=== PATIENT | male | born 1970 | race Two or more races ===

== ENCOUNTER 2023-10-20 20:37 | Inpatient (IN) | payer OTHER ==
[2023-10-20 21:47] VITALS: BMI 21.6
[2023-10-20] MEDS ORDERED: BENZOCAINE/MENTHOL (CHLORASEPTIC ) LOZENGE MM PRN (23:36)
[2023-10-20] MEDS ORDERED: BISMUTH SUBSALICYLATE 524 MG/30 ML PO PRN (23:36)
[2023-10-20] MEDS ORDERED: MAGNESIUM HYDROX 2400MG/30ML ORAL SUSPENSION 30 ML CUP PO PRN (23:36)
[2023-10-20] MEDS ORDERED: POLYETHYLENE GLYCOL (HEALTHYLAX) 3350 17 GM PACKET PO PRN (23:36)
[2023-10-20] MEDS ORDERED: NALOXONE HCL 0.4 MG/ML VIAL IM PRN (23:36)
[2023-10-20] MEDS ORDERED: IBUPROFEN 600 MG TABLET (FP) PO PRN (23:36)
[2023-10-20] MEDS ORDERED: ONDANSETRON *ODT* 4 MG TABLET SL PRN (23:36)
[2023-10-20] MEDS ORDERED: METHOCARBAMOL 500 MG TABLET PO PRN (23:36)
[2023-10-20] MEDS ORDERED: BENZONATATE 200 MG CAPSULE PO PRN (23:36)
[2023-10-20] MEDS ORDERED: NALOXONE HCL (KLOXXADO) 8 MG SPRAY NS PRN (23:36)
[2023-10-20] MEDS ORDERED: IBUPROFEN 400 MG TABLET (FP) PO PRN (23:36)
[2023-10-20] MEDS ORDERED: MAG HYDROX/AL HYDROX/SIMETH 30 ML UNIT-DOSE CUP PO PRN (23:36)
[2023-10-20] MEDS ORDERED: guaiFENesin 600 MG TABLET.ER (FP) PO PRN (23:36)
[2023-10-20] MEDS ORDERED: LOPERAMIDE HCL 2 MG CAPSULE PO PRN (23:36)
[2023-10-20] MEDS ORDERED: DICYCLOMINE HCL 10 MG CAPSULE PO PRN (23:36)
[2023-10-20] MEDS ORDERED: NICOTINE POLACRILEX 4 MG GUM BUC PRN (23:36)
[2023-10-20] MEDS ORDERED: LORazepam 1 MG TABLET PO PRN (23:36)
[2023-10-20] MEDS ORDERED: ACETAMINOPHEN 325 MG TABLET (FP) PO PRN (23:36)
[2023-10-21] MEDS ORDERED: LORazepam 2 MG TABLET ONE (00:28)
[2023-10-21] MEDS ORDERED: hydrOXYzine PAMOATE 25 MG CAPSULE (FP) PO ONE (00:29)
[2023-10-21] MEDS: LORazepam 2 MG TABLET PO SCH ×5 (00:32→22:35)
[2023-10-21] MEDS ORDERED: ACETAMINOPHEN 325 MG TABLET (FP) ONE (03:32)
[2023-10-21] MEDS: NICOTINE 21 MG/24 HOURS TOPICAL PATCH TD SCH (10:17)
[2023-10-21] MEDS: PRENATAL VITAMINS W/ FOLIC ACID TABLET (FP) PO SCH (10:18)
[2023-10-21 12:20] LABS: HEMATOCRIT 42.6 % (35.4-49); HEMOGLOBIN 14.3 GM/dL (11.7-16.9); MCH 33.8 pg (25.7-33.7); MCHC 33.7 g/dl (32.0-35.9); MEAN CELL VOLUME 100.4 fl (80-96); MEAN PLT VOLUME 8.7 fl (7.5-11.1); PLATELET COUNT 278 10^3/uL (134-434); RBC 4.24 M/mm3 (4.00-5.60); RDW 12.6 % (11.9-15.9); WHITE BLOOD COUNT 5.8 K/mm3 (4.0-10.0)
[2023-10-21 12:53] LABS: CHLORIDE 106 mmol/L (98-107); POTASSIUM 3.7 mmol/L (3.5-5.1); SODIUM 139 mmol/L (136-145)
[2023-10-21 12:59] LABS: CALCIUM 7.9 mg/dL (8.5-10.1)
[2023-10-21 13:00] LABS: ALBUMIN 3.2 g/dl (3.4-5.0); ANION GAP 7 mmol/L (4-13); BLOOD UREA NITROGEN 10.6 mg/dL (7-18); CO2 26 mmol/L (21-32); GLUCOSE,RANDOM 82 mg/dL (74-106)
[2023-10-21 13:03] LABS: CREATININE 0.9 mg/dL (0.55-1.3); SGOT/AST 17 U/L (15-37); SGPT/ALT 21 U/L (13-61)
[2023-10-21 13:05] LABS: BILIRUBIN,TOTAL 1.2 mg/dL (0.2-1); TOT PROT 6.3 g/dl (6.4-8.2)
[2023-10-21 13:06] LABS: ALK PHOS 81 U/L (45-117)
[2023-10-21] MEDS ORDERED: THIAMINE HCL 100 MG TABLET (FP) PO SCH (22:00)
[2023-10-21] MEDS ORDERED: MELATONIN 5 MG TABLETS PO SCH (22:00)
[2023-10-22] MEDS: LORazepam 1 MG TABLET PO SCH ×3 (05:23→17:25)
[2023-10-22] MEDS: PRENATAL VITAMINS W/ FOLIC ACID TABLET (FP) PO SCH (10:08)
[2023-10-22] MEDS: NICOTINE 21 MG/24 HOURS TOPICAL PATCH TD SCH (10:09)
[2023-10-22] MEDS ORDERED: AMMONIUM LACTATE 12% LOTION 225 GM BOTTLE TP SCH (15:00)
[2023-10-22 17:30] VITALS: BP 143/88; PULSE 118; RESP 17; TEMP 98.1
[2023-10-23] MEDS ORDERED: LORazepam 0.5 MG TABLET PO PRN
[2023-10-23] MEDS ORDERED: LORazepam 0.5 MG TABLET PO SCH (05:00)
[2023-10-24] MEDS ORDERED: LORazepam 0.5 MG TABLET PO ONE (05:00)
== END 2023-10-22 19:35 | disposition left against medical advice (07) | DRG 894 ==
LOC: YASAS 20:37 → Y6N 10-21 03:26
PROVIDERS: ADMIT Allergy & Immunology; ATTEND Surgery
PROC: HZ2ZZZZ Detoxification Services for Substance Abuse Treatment (ICD-10-PCS; principal; 2023-10-21)
DX: F10.230 Alcohol dependence with withdrawal, uncomplicated (principal); F14.20 Cocaine dependence, uncomplicated; F19.282 Other psychoactive substance dependence with psychoactive substance-induced sleep disorder; Z59.00 Homelessness unspecified; F17.210 Nicotine dependence, cigarettes, uncomplicated; F19.24 Other psychoactive substance dependence with psychoactive substance-induced mood disorder; Z56.0 Unemployment, unspecified
CPT/HCPCS: 36415; 80053; 80307; 85027; 86780; 87635; 87811; 93005; 93010

== ENCOUNTER 2024-01-14 09:28 | Inpatient (IN) | payer OTHER ==
[2024-01-14 09:50] VITALS: BMI 21.6
[2024-01-14] MEDS ORDERED: BENZONATATE 200 MG CAPSULE PO PRN (10:18)
[2024-01-14] MEDS ORDERED: MAGNESIUM HYDROX 2400MG/30ML ORAL SUSPENSION 30 ML CUP PO PRN (10:18)
[2024-01-14] MEDS ORDERED: hydrOXYzine PAMOATE 25 MG CAPSULE (FP) PO PRN (10:18)
[2024-01-14] MEDS ORDERED: DICYCLOMINE HCL 10 MG CAPSULE PO PRN (10:18)
[2024-01-14] MEDS ORDERED: MAG HYDROX/AL HYDROX/SIMETH 30 ML UNIT-DOSE CUP PO PRN (10:18)
[2024-01-14] MEDS ORDERED: POLYETHYLENE GLYCOL (HEALTHYLAX) 3350 17 GM PACKET PO PRN (10:18)
[2024-01-14] MEDS ORDERED: IBUPROFEN 400 MG TABLET (FP) PO PRN (10:18)
[2024-01-14] MEDS ORDERED: IBUPROFEN 600 MG TABLET (FP) PO PRN (10:18)
[2024-01-14] MEDS ORDERED: METHOCARBAMOL 500 MG TABLET PO PRN (10:18)
[2024-01-14] MEDS ORDERED: NALOXONE HCL (KLOXXADO) 8 MG SPRAY NS PRN (10:18)
[2024-01-14] MEDS ORDERED: LOPERAMIDE HCL 2 MG CAPSULE PO PRN (10:18)
[2024-01-14] MEDS ORDERED: BENZOCAINE/MENTHOL (CHLORASEPTIC ) LOZENGE MM PRN (10:18)
[2024-01-14] MEDS ORDERED: ACETAMINOPHEN 325 MG TABLET (FP) PO PRN (10:18)
[2024-01-14] MEDS ORDERED: guaiFENesin 600 MG TABLET.ER (FP) PO PRN (10:18)
[2024-01-14] MEDS ORDERED: NALOXONE HCL 0.4 MG/ML VIAL IM PRN (10:18)
[2024-01-14] MEDS ORDERED: ONDANSETRON *ODT* 4 MG TABLET SL PRN (10:18)
[2024-01-14] MEDS ORDERED: BISMUTH SUBSALICYLATE 524 MG/30 ML PO PRN (10:18)
[2024-01-14] MEDS ORDERED: NICOTINE POLACRILEX 2 MG GUM BUC PRN (10:18)
[2024-01-14] MEDS: chlordiazePOXIDE HCL 25 MG CAPSULE PO SCH (11:16)
[2024-01-14] MEDS ORDERED: chlordiazePOXIDE HCL 25 MG CAPSULE ONE (11:22)
[2024-01-14] MEDS: MELATONIN 5 MG TABLETS PO SCH (22:13)
[2024-01-14] MEDS: THIAMINE HCL 100 MG TABLET (FP) PO SCH (22:13)
[2024-01-15] MEDS: NICOTINE 21 MG/24 HOURS TOPICAL PATCH TD SCH (10:05)
[2024-01-15] MEDS: PRENATAL VITAMINS W/ FOLIC ACID TABLET (FP) PO SCH (10:05)
[2024-01-15 13:15] LABS: HEMATOCRIT 39.8 % (35.4-49); HEMOGLOBIN 13.4 GM/dL (11.7-16.9); MCH 33.9 pg (25.7-33.7); MCHC 33.8 g/dl (32.0-35.9); MEAN CELL VOLUME 100.3 fl (80-96); MEAN PLT VOLUME 8.7 fl (7.5-11.1); PLATELET COUNT 274 10^3/uL (134-434); RBC 3.97 M/mm3 (4.00-5.60); RDW 13.2 % (11.9-15.9); WHITE BLOOD COUNT 5.4 K/mm3 (4.0-10.0)
[2024-01-15 13:28] LABS: POTASSIUM 4.2 mmol/L (3.5-5.1)
[2024-01-15 13:34] LABS: CALCIUM 8.4 mg/dL (8.5-10.1)
[2024-01-15 13:35] LABS: ALBUMIN 3.2 g/dl (3.4-5.0); BLOOD UREA NITROGEN 11.1 mg/dL (7-18)
[2024-01-15 13:36] LABS: CREATININE 0.8 mg/dL (0.55-1.3)
[2024-01-15 13:38] LABS: BILIRUBIN,TOTAL 0.9 mg/dL (0.2-1); TOT PROT 6.3 g/dl (6.4-8.2)
[2024-01-15 14:03] VITALS: TEMP 97.6
[2024-01-15] MEDS: chlordiazePOXIDE HCL 25 MG CAPSULE PO PRN (15:21)
[2024-01-15 17:17] VITALS: BP 138/90; PULSE 113; RESP 18
[2024-01-16] MEDS ORDERED: chlordiazePOXIDE HCL 25 MG CAPSULE PO SCH (05:00)
[2024-01-17] MEDS ORDERED: chlordiazePOXIDE HCL 10 MG CAPSULE PO PRN
[2024-01-17] MEDS ORDERED: chlordiazePOXIDE HCL 10 MG CAPSULE PO SCH (05:00)
[2024-01-18] MEDS ORDERED: chlordiazePOXIDE HCL 10 MG CAPSULE PO SCH (05:00)
[2024-01-19] MEDS ORDERED: chlordiazePOXIDE HCL 10 MG CAPSULE PO ONE (05:00)
== END 2024-01-15 17:31 | disposition home or self-care (01) | DRG 897 ==
LOC: YASAS 09:28 → Y3N 10:44
PROVIDERS: ADMIT Allergy & Immunology; ATTEND Surgery
PROC: HZ2ZZZZ Detoxification Services for Substance Abuse Treatment (ICD-10-PCS; principal; 2024-01-14)
DX: F10.230 Alcohol dependence with withdrawal, uncomplicated (principal); F19.282 Other psychoactive substance dependence with psychoactive substance-induced sleep disorder; Z59.00 Homelessness unspecified; F17.210 Nicotine dependence, cigarettes, uncomplicated; F19.24 Other psychoactive substance dependence with psychoactive substance-induced mood disorder; Z86.69 Personal history of other diseases of the nervous system and sense organs; Z56.0 Unemployment, unspecified
CPT/HCPCS: 36415; 80053; 80305; 80307; 85027; 86780; 87635; 93005; 93010

== ENCOUNTER 2024-12-18 21:41 | Inpatient (IN) | payer OTHER ==
[2024-12-18 21:58] VITALS: BMI 20.8
[2024-12-18] MEDS ORDERED: LOPERAMIDE HCL 2 MG CAPSULE PO PRN (22:20)
[2024-12-18] MEDS ORDERED: MAGNESIUM HYDROX 2400MG/30ML ORAL SUSPENSION 30 ML CUP PO PRN (22:20)
[2024-12-18] MEDS ORDERED: IBUPROFEN 400 MG TABLET (FP) PO PRN (22:20)
[2024-12-18] MEDS ORDERED: NICOTINE POLACRILEX 4 MG GUM BUC PRN (22:20)
[2024-12-18] MEDS ORDERED: guaiFENesin 600 MG TABLET.ER (FP) PO PRN (22:20)
[2024-12-18] MEDS ORDERED: chlordiazePOXIDE HCL 25 MG CAPSULE PO PRN (22:20)
[2024-12-18] MEDS ORDERED: POLYETHYLENE GLYCOL (HEALTHYLAX) 3350 17 GM PACKET PO PRN (22:20)
[2024-12-18] MEDS ORDERED: DICYCLOMINE HCL 10 MG CAPSULE PO PRN (22:20)
[2024-12-18] MEDS ORDERED: ACETAMINOPHEN 325 MG TABLET (FP) PO PRN (22:20)
[2024-12-18] MEDS ORDERED: NALOXONE (NARCAN) HCL 4 MG/0.1 ML SPRAY NS PRN (22:20)
[2024-12-18] MEDS ORDERED: MAG HYDROX/AL HYDROX/SIMETH 30 ML UNIT-DOSE CUP PO PRN (22:20)
[2024-12-18] MEDS ORDERED: IBUPROFEN 600 MG TABLET (FP) PO PRN (22:20)
[2024-12-18] MEDS ORDERED: BENZONATATE 200 MG CAPSULE PO PRN (22:20)
[2024-12-18] MEDS ORDERED: ONDANSETRON *ODT* 4 MG TABLET SL PRN (22:20)
[2024-12-18] MEDS ORDERED: BISMUTH SUBSALICYLATE 524 MG/30 ML PO PRN (22:20)
[2024-12-18] MEDS ORDERED: BENZOCAINE/MENTHOL (CHLORASEPTIC ) LOZENGE MM PRN (22:20)
[2024-12-19] MEDS ORDERED: chlordiazePOXIDE HCL 25 MG CAPSULE ONE (00:32)
[2024-12-19] MEDS: chlordiazePOXIDE HCL 25 MG CAPSULE PO SCH (00:37)
[2024-12-19] MEDS: PRENATAL VITAMINS W/ FOLIC ACID TABLET (FP) PO SCH (10:35)
[2024-12-19] MEDS: NICOTINE 21 MG/24 HOURS TOPICAL PATCH TD SCH (10:35)
[2024-12-19] MEDS: hydrOXYzine PAMOATE 25 MG CAPSULE (FP) PO PRN (10:36)
[2024-12-19 12:08] LABS: HEMATOCRIT 41.5 % (35.4-49); HEMOGLOBIN 14.1 GM/dL (11.7-16.9); MCH 33.5 pg (25.7-33.7); MEAN CELL VOLUME 98.5 fl (80-96); MEAN PLT VOLUME 8.9 fl (7.5-11.1); PLATELET COUNT 281 10^3/uL (134-434); RBC 4.21 M/mm3 (4.00-5.60); RDW 12.7 % (11.9-15.9); WHITE BLOOD COUNT 6.6 K/mm3 (4.0-10.0)
[2024-12-19 12:11] LABS: CHLORIDE 109 mmol/L (98-107); POTASSIUM 3.7 mmol/L (3.5-5.1); SODIUM 143 mmol/L (136-145)
[2024-12-19 12:13] LABS: ALBUMIN 3.4 g/dl (3.4-5.0); BLOOD UREA NITROGEN 10.3 mg/dL (7-18); CALCIUM 8.7 mg/dL (8.5-10.1)
[2024-12-19 12:14] LABS: ANION GAP 5 mmol/L (4-13); CO2 30 mmol/L (21-32); GLUCOSE,RANDOM 161 mg/dL (74-106)
[2024-12-19 12:17] LABS: CREATININE 0.9 mg/dL (0.55-1.3); SGOT/AST 18 U/L (15-37); SGPT/ALT 26 U/L (13-61)
[2024-12-19 12:18] LABS: BILIRUBIN,TOTAL 1.2 mg/dL (0.2-1); TOT PROT 6.4 g/dl (6.4-8.2)
[2024-12-19 12:19] LABS: ALK PHOS 74 U/L (45-117)
[2024-12-19 16:49] VITALS: BP 112/66; PULSE 82; RESP 16; TEMP 97.8
[2024-12-19] MEDS ORDERED: THIAMINE 100 MG TABLET PO SCH (22:00)
[2024-12-19] MEDS ORDERED: MELATONIN 5 MG TABLETS PO SCH (22:00)
[2024-12-20] MEDS ORDERED: chlordiazePOXIDE HCL 25 MG CAPSULE PO SCH (05:00)
[2024-12-20] MEDS ORDERED: NALTREXONE HCL 50 MG TABLET PO SCH (10:00)
[2024-12-21] MEDS ORDERED: chlordiazePOXIDE HCL 10 MG CAPSULE PO PRN
[2024-12-21] MEDS ORDERED: chlordiazePOXIDE HCL 10 MG CAPSULE PO SCH (05:00)
[2024-12-22] MEDS ORDERED: chlordiazePOXIDE HCL 10 MG CAPSULE PO SCH (05:00)
[2024-12-23] MEDS ORDERED: chlordiazePOXIDE HCL 10 MG CAPSULE PO ONE (05:00)
== END 2024-12-19 17:20 | disposition left against medical advice (07) | DRG 894 ==
LOC: YASAS 21:41 → Y6N 12-19 01:17
PROVIDERS: ADMIT Allergy & Immunology; ATTEND Allergy & Immunology
PROC: HZ2ZZZZ Detoxification Services for Substance Abuse Treatment (ICD-10-PCS; principal; 2024-12-19)
DX: F10.230 Alcohol dependence with withdrawal, uncomplicated (principal); F14.20 Cocaine dependence, uncomplicated; Z59.00 Homelessness unspecified; F17.210 Nicotine dependence, cigarettes, uncomplicated; F19.24 Other psychoactive substance dependence with psychoactive substance-induced mood disorder; F32.A Depression, unspecified; Z91.199 Patient's noncompliance with other medical treatment and regimen due to unspecified reason
CPT/HCPCS: 36415; 80053; 80305; 80307; 85027; 86780; 93005; 93010

== ENCOUNTER 2024-12-28 23:24 | Inpatient (IN) | payer OTHER ==
[2024-12-28 23:52] VITALS: BMI 20.6
[2024-12-29] MEDS ORDERED: IBUPROFEN 400 MG TABLET (FP) PO PRN (00:12)
[2024-12-29] MEDS ORDERED: BISMUTH SUBSALICYLATE 524 MG/30 ML PO PRN (00:12)
[2024-12-29] MEDS ORDERED: NALOXONE (NARCAN) HCL 4 MG/0.1 ML SPRAY NS PRN (00:12)
[2024-12-29] MEDS ORDERED: BENZONATATE 200 MG CAPSULE PO PRN (00:12)
[2024-12-29] MEDS ORDERED: BENZOCAINE/MENTHOL (CHLORASEPTIC ) LOZENGE MM PRN (00:12)
[2024-12-29] MEDS ORDERED: POLYETHYLENE GLYCOL (HEALTHYLAX) 3350 17 GM PACKET PO PRN (00:12)
[2024-12-29] MEDS ORDERED: MAG HYDROX/AL HYDROX/SIMETH 30 ML UNIT-DOSE CUP PO PRN (00:12)
[2024-12-29] MEDS ORDERED: LOPERAMIDE HCL 2 MG CAPSULE PO PRN (00:12)
[2024-12-29] MEDS ORDERED: ACETAMINOPHEN 325 MG TABLET (FP) PO PRN (00:12)
[2024-12-29] MEDS ORDERED: guaiFENesin 600 MG TABLET.ER (FP) PO PRN (00:12)
[2024-12-29] MEDS ORDERED: DICYCLOMINE HCL 10 MG CAPSULE PO PRN (00:12)
[2024-12-29] MEDS ORDERED: IBUPROFEN 600 MG TABLET (FP) PO PRN (00:12)
[2024-12-29] MEDS ORDERED: NICOTINE POLACRILEX 4 MG GUM BUC PRN (00:12)
[2024-12-29] MEDS ORDERED: MAGNESIUM HYDROX 2400MG/30ML ORAL SUSPENSION 30 ML CUP PO PRN (00:12)
[2024-12-29] MEDS ORDERED: ONDANSETRON *ODT* 4 MG TABLET SL PRN (00:12)
[2024-12-29] MEDS ORDERED: LORazepam 1 MG TABLET ONE (02:34)
[2024-12-29] MEDS: LORazepam 1 MG TABLET PO PRN (02:35)
[2024-12-29] MEDS ORDERED: LORazepam 2 MG TABLET ONE ×2 (05:17→10:21)
[2024-12-29] MEDS: LORazepam 2 MG TABLET PO SCH (05:39)
[2024-12-29] MEDS ORDERED: PRENATAL VITAMINS W/ FOLIC ACID TABLET (FP) PO ONE (10:14)
[2024-12-29] MEDS ORDERED: NICOTINE 21 MG/24 HOURS TOPICAL PATCH ONE (10:15)
[2024-12-29] MEDS: NICOTINE 21 MG/24 HOURS TOPICAL PATCH TD SCH (10:32)
[2024-12-29] MEDS: PRENATAL VITAMINS W/ FOLIC ACID TABLET (FP) PO SCH (10:32)
[2024-12-29] MEDS: hydrOXYzine PAMOATE 25 MG CAPSULE (FP) PO PRN (12:24)
[2024-12-29] MEDS: MELATONIN 5 MG TABLETS PO SCH (22:27)
[2024-12-29] MEDS: THIAMINE 100 MG TABLET PO SCH (22:27)
[2024-12-30] MEDS: LORazepam 1 MG TABLET PO SCH (05:53)
[2024-12-30] MEDS: SUVOREXANT 10 MG TABLET PO PRN (22:05)
[2024-12-31] MEDS ORDERED: LORazepam 0.5 MG TABLET PO PRN
[2024-12-31] MEDS: LORazepam 0.5 MG TABLET PO SCH (05:54)
[2024-12-31 21:24] VITALS: RESP 16
[2025-01-01] MEDS: LORazepam 0.5 MG TABLET PO ONE (05:28)
[2025-01-01 09:26] VITALS: BP 108/80; PULSE 107; TEMP 98.2
== END 2025-01-01 09:50 | disposition home or self-care (01) | DRG 897 ==
LOC: YASAS 23:24 → Y3N 12-29 11:35
PROVIDERS: ADMIT Allergy & Immunology; ATTEND Allergy & Immunology
PROC: HZ2ZZZZ Detoxification Services for Substance Abuse Treatment (ICD-10-PCS; principal; 2024-12-29)
DX: F10.230 Alcohol dependence with withdrawal, uncomplicated (principal); Z59.00 Homelessness unspecified; F17.210 Nicotine dependence, cigarettes, uncomplicated; F19.24 Other psychoactive substance dependence with psychoactive substance-induced mood disorder; F32.A Depression, unspecified; G47.00 Insomnia, unspecified; Z91.199 Patient's noncompliance with other medical treatment and regimen due to unspecified reason
CPT/HCPCS: 36415; 80305; 80307